=== PATIENT | female | born 1990 | race Caucasian/White ===

== ENCOUNTER 2019-04-13 15:21 | Emergency (ER) | payer MEDICAID ==
[~2019-04-13] VITALS: Ht 167.6 cm; Wt 53.8 kg
[~2019-04-13 15:21] MED LIST: AMOX500C2 PO; AZIT250T PO; IBUP-1561 PO; PROM6.2515 PO
[2019-04-13 15:25] VITALS: BP 121/81; PULSE 114; RESP 18; Ht 167.6 cm; Wt 53.8 kg
== END 2019-04-13 16:42 | disposition home or self-care (01) ==
LOC: FTE 15:21
DX: J20.9 Acute bronchitis, unspecified (principal)
CPT/HCPCS: 99283